=== PATIENT | male | born 1980 | race Caucasian/White ===

== ENCOUNTER 2023-09-05 19:39 | Inpatient (IN) | payer MEDICAID, OTHER ==
[~2023-09-05] VITALS: Ht 180.3 cm; Wt 145.0 kg
[~2023-09-05 19:39] MED LIST: CEPH-357 PO; NO HOME MEDS
[2023-09-05 20:07] LABS: BASOPHILS % (AUTO) 0.3 % (0-1); EOSINOPHILS # (AUTO) 0.2 X10'3 (0-0.9); EOSINOPHILS % (AUTO) 2.2 % (0-6); HEMATOCRIT 40.4 % (42.0-52.0); HEMOGLOBIN 13.1 g/dl (14.0-17.9); LYMPHOCYTES % (AUTO) 10.7 % (21-51); MEAN CORPUSCULAR HEMOGLOBIN 26.4 PG (27.0-31.0); MEAN CORPUSCULAR HGB CONC 32.3 g/dL (33.0-36.5); MEAN CORPUSCULAR VOLUME 81.7 FL (78-98); MEAN PLATELET VOLUME 10.1 FL (7.4-10.4); MONOCYTES # (AUTO) 0.9 X10'3 (0-0.9); MONOCYTES % (AUTO) 9.6 % (2-12); NEUTROPHILS # (AUTO) 6.8 X10'3 (1.8-7.7); NEUTROPHILS % (AUTO) 77.2 % (42-75); PLATELET COUNT 195 X10'3 (140-440); RED BLOOD COUNT 4.95 X10'6 (4.70-6.10); RED CELL DISTRIBUTION WIDTH 15.2 % (11.5-14.5); WHITE BLOOD COUNT 8.9 X10'3 (4.5-11.0)
[2023-09-05 20:18] LABS: ALANINE AMINOTRANSFERASE 36 U/L (12-78); ALBUMIN 3.3 G/DL (3.4-5.0); ALBUMIN/GLOBULIN RATIO 0.8 (1.1-1.5); ALKALINE PHOSPHATASE 84 IU/L (46-116); ANION GAP 6 (8-16); ASPARTATE AMINO TRANSFERASE 18 U/L (10-37); BILIRUBIN,TOTAL 0.5 MG/DL (0.1-1.0); BLOOD UREA NITROGEN 15 MG/DL (7-18); BUN/CREATININE RATIO 12.1 (10.0-20.0); CALCIUM 8.8 MG/DL (8.5-10.1); CHLORIDE 103 MMOL/L (99-107); CREATININE 1.24 MG/DL (0.60-1.10); GLUCOSE 123 MG/DL (70-104); POTASSIUM 3.7 MMOL/L (3.5-5.1); SODIUM 142 MMOL/L (135-145); TOTAL CARBON DIOXIDE 32.8 MMOL/L (24-32); TOTAL PROTEIN 7.5 G/DL (6.4-8.2); eCRCL 83 ML/MIN; eGFR 64 ML/MIN
[2023-09-05 20:25] LABS: PRO BRAIN NATRIURETIC PEPTIDE 1153 PG/ML (0-125)
[2023-09-06] VITALS (9 sets, daily range): BP systolic 135–167; BP diastolic 60–94; PULSE 73–107; RESP 18–24; TEMP 97.9–98.7; O2SAT 95–98
[2023-09-06] MEDS ORDERED: furosemide 10 MG/1 ML 10ml inj IV ONE (00:05)
--- NOTE | 2023-09-06 00:09 | NUR ---
recieved pt from triage. Pt is a&o x4, good historian. Pt connected to tele monitor. PIV established, blood sent to lab. Will continue to monitor
--- NOTE | 2023-09-06 00:24 | NUR ---
lasix given via PIV, urinal at bedside
--- NOTE | 2023-09-06 00:58 | NUR ---
800mL urine out after lasix administration
[2023-09-06] MEDS ORDERED: labetalol 20mg/4ml (5mg/ml) syringe IV ONE (01:00)
[2023-09-06] MEDS ORDERED: ondansetron/PF 4mg/2ml inj IV PRN (01:25)
[2023-09-06] MEDS ORDERED: mag hydrox/Alum hydrox/simeth 30ml oral suspension PO PRN (01:25)
[2023-09-06] MEDS ORDERED: ondansetron 4mg rapidly disintigrating tab PO PRN (01:25)
[2023-09-06] MEDS ORDERED: HYDROcodone/acetaminophen 5mg/325mg tablet PO PRN (01:25)
[2023-09-06] MEDS ORDERED: bisacodyl 10mg suppository rectal RC PRN (01:25)
[2023-09-06] MEDS ORDERED: acetaminophen 325mg tablet PO PRN ×2 (01:25)
[2023-09-06] MEDS ORDERED: diphenhydrAMINE 25mg capsule PO PRN (01:25)
[2023-09-06] MEDS ORDERED: magnesium hydroxide 30ml (MOM) UD suspension PO PRN (01:25)
[2023-09-06] MEDS ORDERED: acetaminophen 650mg rectal suppository RC PRN (01:25)
[2023-09-06] MEDS ORDERED: morphine 2 MG/ML inj. syringe IV PRN ×2 (01:25)
[2023-09-06] MEDS ORDERED: diphenhydrAMINE 50 mg/ml inj IV PRN (01:25)
[2023-09-06] MEDS ORDERED: metoclopramide 5 mg/ml inj IV PRN (01:25)
[2023-09-06] MEDS ORDERED: HYDROcodone/acetaminophen 10/325mg tab PO PRN (01:25)
[2023-09-06 01:50] LABS: HEMOGLOBIN A1C 5.6 % (4.5-6.2)
[2023-09-06] MEDS ORDERED: niCARDipine-NS 40mg/200ml IVPB 200 ML IV SCH (01:55)
[2023-09-06 02:03] LABS: MAGNESIUM 2.2 MG/DL (1.5-2.4); PHOSPHORUS 4.9 MG/DL (2.3-4.5); THYROID STIMULATING HORMONE 3.95 ulU/ml (0.34-4.50)
--- NOTE | 2023-09-06 02:13 | NUR ---
Pt is a&o x4, ambulatory, BP elevated, nicardipine started.
[2023-09-06 02:21] LABS: URINE AMPHETAMINE SCREEN NEGATIVE (Neg); URINE BARBITUATE SCREEN NEGATIVE (Neg); URINE BENZODIAZEPINES SCREEN NEGATIVE (Neg); URINE CANNABINOID SCREEN NEGATIVE (Neg); URINE COCAINE SCREEN POSITIVE (Neg); URINE OPIATE SCREEN NEGATIVE (Neg); URINE PHENCYCLIDINE SCREEN NEGATIVE (Neg)
[2023-09-06 02:44] LABS: D-DIMER 0.99 MG/L FEU (0-0.50)
--- NOTE | 2023-09-06 02:58 | NUR ---
Pt placed on 2L NC for support while sleeping
[2023-09-06 03:36] LABS: APTT 25 SECONDS (22-32); INR 1.1 INR; PROTHROMBIN TIME 11.3 SECONDS (9.0-12.0)
--- NOTE | 2023-09-06 04:24 | NUR ---
NC increased to 3L for pt comfort
--- NOTE | 2023-09-06 04:24 | NUR ---
900mL urine out
[2023-09-06] MEDS: LORazepam 2 mg/ml vial IV SCH ×2 (08:00→21:13)
[2023-09-06] MEDS ORDERED: furosemide 40mg/4ml inj IV SCH (08:00)
--- NOTE | 2023-09-06 08:00 | NUR ---
PRIMARY RN SPOKE WITH ADMITTING MD RESIDENT ABOUT TRANSFER ORDERS TO FLOOR. NO NEW ORDERS AT THIS TIME.
--- NOTE | 2023-09-06 08:38 | NUR ---
Received order for consult. Met with patient in regards to substance use and to see if patient was interested in resources for treatment options. Patient declined resources.
[2023-09-06] MEDS: heparin, porcine 5000 units/ml vial SQ SCH ×3 (08:57→23:12)
[2023-09-06] MEDS: docusate sod 100mg capsule PO SCH ×2 (08:57→21:12)
[2023-09-06] MEDS: aspirin 81mg tab.chew PO SCH (08:57)
[2023-09-06] MEDS: pantoprazole 40mg Tablet.DR PO SCH (09:27)
[2023-09-06] MEDS ORDERED: hydrALAZINE 20mg/ml inj. IV PRN (10:20)
[2023-09-06] MEDS ORDERED: amLODIPine 5mg tablet PO SCH (10:25)
[2023-09-06] MEDS: hyDRALAzine 10mg tablet PO SCH ×3 (10:48→23:11)
--- NOTE | 2023-09-06 11:51 | NUR ---
PT TRANSFERRED FROM ED HALLWAY TO ROOM 0304F RECEIVED REPORT AND ASSUMED CARE OF PATIENT. VSS PT IS A/OX4 AND WAS ORIENTED TO HIS ROOM, BED, & CALL LIGHT. ORIENTED TO PLAN OF CARE
--- NOTE | 2023-09-06 11:55 | NUR ---
NOTIFIED DR ANDERS WHO IS PRACTICING WITH DR KELLEY, ABOUT PATIENTS HIGH BLOOD PRESSURE. PT JUST ARRIVED IN 3018A FROM ED THEY HAD STOPPED A CARDENE GTT AND ADMINISTERED HYDRALIZINE AND AMLODIPINE PO. LAST BP HERE IS 157/121 WITH A MAP OF [address] ANDERS TO ASSESS AND WRITE ORDERS
--- NOTE | 2023-09-06 12:05 | NUR ---
Message: ROOM [facility] - [facility] [place] GTT TURNED OFF IN ED-PO HDRALYZINE, NITRO PASTE, PO AMLODIPINE AND 80MG IV LASIX ADMIN IN ED - CURRENT BLOOD PRESSURE IS 162/121- PLEASE ADVISE- SHOULD HE GO BACK ON GTT? OR CONT TO MONITOR-MUKESH MEDINA [id number]
--- NOTE | 2023-09-06 13:49 | NUR ---
Calorie count consult: Pt admit for hypertensive emergency, CHF exacerbation, NSTEMI, and MIR. Pt just admitted, pending malnutrition risk screen with RN, physical assessment, and documentation of PO intake on 2 g Na restricted diet. Will continue to follow and monitor need for calorie count and nutrition intervention. Addendum: 09/06/23 at [address] Amended: Links added.
[2023-09-06] MEDS ORDERED: temazepam 15mg capsule PO PRN (21:00)
[2023-09-06] MEDS: furosemide 40mg/4ml inj IV SCH (21:13)
[2023-09-07] VITALS (9 sets, daily range): BP systolic 146–183; BP diastolic 84–109; PULSE 67–98; RESP 16–29; TEMP 97–98.8; O2SAT 94–98
--- NOTE | 2023-09-07 05:11 | NUR ---
Page Sent promotional table spacer PAGER ID: [phone] MESSAGE: LUCITA VELÁZQUEZ RM [id number] HAD 11 BEAT RUN V TACH WITH HR IN THE 40S TO 80S. KIANA .[facility] [id number].yet to get reply from . Addendum: 09/07/23 at 0531 by Kiana Rainey RN No new orders at this time.
--- NOTE | 2023-09-07 06:16 | NUR ---
Problems reprioritized. Patient report given, questions answered & plan of care reviewed with Mariam.
[2023-09-07 07:48] LABS: BASOPHILS % (AUTO) 0.4 % (0-1); EOSINOPHILS # (AUTO) 0.1 X10'3 (0-0.9); HEMATOCRIT 38.5 % (42.0-52.0); HEMOGLOBIN 12.4 g/dl (14.0-17.9); LYMPHOCYTES # (AUTO) 0.8 X10'3 (1.1-4.8); LYMPHOCYTES % (AUTO) 6.9 % (21-51); MEAN CORPUSCULAR HEMOGLOBIN 26.5 PG (27.0-31.0); MEAN CORPUSCULAR HGB CONC 32.3 g/dL (33.0-36.5); MEAN PLATELET VOLUME 10.1 FL (7.4-10.4); MONOCYTES # (AUTO) 1.3 X10'3 (0-0.9); MONOCYTES % (AUTO) 11.5 % (2-12); NEUTROPHILS % (AUTO) 80.2 % (42-75); PLATELET COUNT 208 X10'3 (140-440); RED CELL DISTRIBUTION WIDTH 15.3 % (11.5-14.5); WHITE BLOOD COUNT 11.2 X10'3 (4.5-11.0)
[2023-09-07] MEDS: docusate sod 100mg capsule PO SCH (08:00)
[2023-09-07 08:01] LABS: ALANINE AMINOTRANSFERASE 30 U/L (12-78); ALBUMIN 3.1 G/DL (3.4-5.0); ALBUMIN/GLOBULIN RATIO 0.8 (1.1-1.5); ALKALINE PHOSPHATASE 72 IU/L (46-116); ANION GAP 5 (8-16); ASPARTATE AMINO TRANSFERASE 12 U/L (10-37); BLOOD UREA NITROGEN 17 MG/DL (7-18); BUN/CREATININE RATIO 14.8 (10.0-20.0); CALCIUM 8.9 MG/DL (8.5-10.1); CHLORIDE 101 MMOL/L (99-107); CHOL/HDL RATIO 3.5 (0.00-4.99); CHOLESTEROL 148 MG/DL (0-200); CREATININE 1.15 MG/DL (0.60-1.10); GLUCOSE 108 MG/DL (70-104); HDL CHOLESTEROL 42 MG/DL (35-60); LDL CHOLESTEROL 85 MG/DL (50-100); POTASSIUM 3.6 MMOL/L (3.5-5.1); SODIUM 139 MMOL/L (135-145); TOTAL CARBON DIOXIDE 33.2 MMOL/L (24-32); TOTAL PROTEIN 7.2 G/DL (6.4-8.2); TRIGLYCERIDES 102 MG/DL (20-135); eCRCL 89 ML/MIN; eGFR 70 ML/MIN
[2023-09-07] MEDS ORDERED: lisinopril 20mg tablet PO ONE (08:55)
[2023-09-07] MEDS: furosemide 40mg/4ml inj IV SCH (09:23)
[2023-09-07] MEDS: aspirin 81mg tab.chew PO SCH (09:23)
[2023-09-07] MEDS: pantoprazole 40mg Tablet.DR PO SCH (09:24)
[2023-09-07] MEDS: hyDRALAzine 10mg tablet PO SCH ×2 (09:24→16:59)
[2023-09-07] MEDS: heparin, porcine 5000 units/ml vial SQ SCH ×2 (09:24→16:00)
[2023-09-07] MEDS ORDERED: carVEDilol 3.125mg tablet PO SCH (11:45)
--- NOTE | 2023-09-07 12:16 | NUR ---
F/u for consult: Pt documented with average 75% versus 50-75% PO intake of first meal (documentation done twice for the same meal). Breakfast tray ticket observed by room, pt with 100% PO intake of breakfast this morning except for 0% PO intake of oatmeal and coffee. Pt denied wt loss or decreased appetite/PO intake per malnutrition risk screen with RN. Noted patient's lipid panel is WNL so given admitting dx current diet order is appropriate. No nutrition concerns identified at this time. Calorie count not warranted. Will continue to follow and make recommendations as appropriate. Addendum: 09/07/23 at [address] Amended: Links added.
[2023-09-07] MEDS ORDERED: COR3.125T PO (16:04)
[2023-09-07] MEDS ORDERED: LISI10TA27 PO (16:04)
[2023-09-07] MEDS ORDERED: BLOO1KIT81 TOP (16:11)
[2023-09-08] MEDS ORDERED: lisinopril 10 MG tablet PO SCH (08:00)
[2023-09-08] MEDS ORDERED: lisinopril 20mg tablet PO SCH (08:00)
== END 2023-09-07 17:52 | disposition home or self-care (01) | DRG 816 ==
LOC: ER 19:40 → ED HOLD 09-06 01:29 → EDBEDREQ 09-06 03:17 → PCU 3S 09-06 11:18 → SUR 3N 09-06 16:43 → PCU 3S 09-06 16:44
PROVIDERS: ADMIT Family Medicine; ATTEND Family Medicine
DX: T40.5X1A Poisoning by cocaine, accidental (unintentional), initial encounter (principal); N17.0 Acute kidney failure with tubular necrosis; I21.A1 Myocardial infarction type 2; I50.33 Acute on chronic diastolic (congestive) heart failure; I16.1 Hypertensive emergency; E88.09 Other disorders of plasma-protein metabolism, not elsewhere classified; I13.0 Hypertensive heart and chronic kidney disease with heart failure and stage 1 through stage 4 chronic kidney disease, or unspecified chronic kidney disease; F12.10 Cannabis abuse, uncomplicated; F14.10 Cocaine abuse, uncomplicated; I87.2 Venous insufficiency (chronic) (peripheral); E66.01 Morbid (severe) obesity due to excess calories; N18.9 Chronic kidney disease, unspecified; Z68.41 Body mass index [BMI] 40.0-44.9, adult; Y92.89 Other specified places as the place of occurrence of the external cause; Y92.9 Unspecified place or not applicable; F14.188 Cocaine abuse with other cocaine-induced disorder
CPT/HCPCS: 36415; 71045; 80053; 80061; 80305; 83036; 83735; 83880; 84100; 84443; 84484; 85025; 85379; 85610; 85730; 93306; 99285; G0378; J0360; J1644; J1940; J2060; J3490